=== PATIENT | male | born 1960 | race Caucasian/White ===

== ENCOUNTER 2017-04-20 01:09 | Inpatient (IN) | payer BC ==
[~2017-04-20] VITALS: Ht 177.8 cm; Wt 98.0 kg
[2017-04-20] VITALS (13 sets, daily range): BP systolic 110–173; BP diastolic 70–96; PULSE 77–98; RESP 16–25; TEMP 96.6–98.3; O2SAT 93–99
[~2017-04-20 01:09] MED LIST: OXYC-360 PO
[2017-04-20] MEDS ORDERED: AMLO5TAB2 PO (01:34)
[2017-04-20] MEDS ORDERED: METF500T PO (01:34)
[2017-04-20] MEDS ORDERED: HYDR25TA5 PO (01:34)
[2017-04-20] MEDS ORDERED: ATOR10TA15 PO (01:34)
[2017-04-20] MEDS ORDERED: LISI40TA PO (01:34)
[2017-04-20] MEDS ORDERED: SODIUM CHLORIDE 0.9% FLUSH 10 ML FLUSH IVF PRN (01:45)
[2017-04-20] MEDS ORDERED: ASPIRIN 81 MG CHEW TAB PO ONE (01:45)
[2017-04-20] MEDS ORDERED: NITROGLYCERIN 2% OINT 1 GM PACKET TOP ONE (01:45)
[2017-04-20] MEDS ORDERED: NITROGLYCERIN 0.4 MG SL 25 TABS/BTL SL ONE (01:45)
[2017-04-20 02:09] LABS: AUTOMATED NEUTROPHIL # 13.2 TH/MM3 (1.8-7.7); BASOPHIL # 0.1 TH/MM3 (0-0.2); BASOPHIL % 0.6 % (0.0-2.0); EOSINOPHIL % 0.1 % (0.0-4.0); HEMATOCRIT 46.5 % (39.0-51.0); HEMO FLAGS DIFF FINAL; LYMPH % 8.3 % (9.0-44.0); LYMPHOCYTE # 1.3 TH/MM3 (1.0-4.8); MEAN CELL VOLUME 87.1 FL (80.0-100.0); MEAN CORPUSCULAR HEMOGLOBIN 30.2 PG (27.0-34.0); MEAN CORPUSCULAR HGB CONC 34.7 % (32.0-36.0); MONO % 3.5 % (0.0-8.0); NEUT % 87.5 % (16.0-70.0); PLATELET COUNT 261 TH/MM3 (150-450); RED BLOOD COUNT 5.33 MIL/MM3 (4.50-5.90); RED CELL DISTRIBUTION WIDTH 13.8 % (11.6-17.2); WHITE BLOOD COUNT 15.1 TH/MM3 (4.0-11.0)
--- NOTE | 2017-04-20 02:10 | RADRPT ---
EXAM DATE/TIME: 04/20/2017 01:47 [facility] COMPARISON: No previous studies available for comparison. INDICATIONS : Pt has chest pain with nausea and vomiting. MEDICAL HISTORY : Diabetes mellitus type II. Hypertension Hypercholesterolemia. SURGICAL HISTORY : Umbilical hernia repair. ENCOUNTER: Initial ACUITY: 1 day PAIN SCORE: 7/10 LOCATION: Bilateral chest FINDINGS: The lungs are clear without infiltrate, nodule, or mass. There is no appreciable pleural effusion fo r technique. Heart and mediastinum are unremarkable. CONCLUSION: No acute cardiopulmonary disease. Janet Lagos MD on April 20, 2017 at 2:08 Board Certified Radiologist. This report was verified electronically.
--- NOTE | 2017-04-20 02:13 | PD ---
HPI Chief Complaint: Chest Pain Time Seen by Provider: 01:36 Travel History International Travel<30 days: No Contact w/Intl Traveler<30days: No Traveled to known affect area: No History of Present Illness HPI The patient is a 56 year old male who presents to the [facility] emergency department with a history of abdominal pain in the midepigastric that began at 3PM. He reports that the pain comes and goes. He reports that it feels like "labor pains". Since onset, he has had nausea and vomiting approximately 30 times. He denies any diarrhea. He last moved his bowels today. He has had blood in his stool for 2 weeks ago. He saw his primary care physician regarding this and did have an internal examination of his sigmoid that he reports was unremarkable. He denies having symptoms of acid reflux or heartburn. The patient denies any recent fevers, cough, congestion, neck pain, shortness of breath, urinary symptoms, or neurologic symptoms. PFS Past Medical History Narrative Medical The patient's past medical history is significant for Kidney stones, Hypertension, DM, hyperlipidemia. He reports that he has had a 20 pound weight loss since due to dietary changes. PCP: Dr. Peterson. Cancer: No High Cholesterol: Yes Diabetes: Yes Patient Takes Glucophage: Yes Diminished Hearing: No Hepatitis: No Hiatal Hernia: No Hypertension: Yes Thyroid Disease: No Tetanus Vaccination: < 5 Years Influenza Vaccination: No Past Surgical History Narrative Surgical The patient's past surgical history is significant for umbilical hernia repair, lithotripsy. Abdominal Surgery: Yes (umbilical hernia repair) Genitourinary Surgery: Yes (kidney stone removed) Other Surgery: Yes Social History Alcohol Use: Yes (1/2 bottle of wine last night. ) Tobacco Use: No Substance Use: No Allergies-Medications (Allergen,Severity, Reaction): Coded Allergies: No Known Allergies (Unverified , 04/20/17) Reported Meds & Prescriptions Reported Meds & Active Scripts Active Reported Metformin (Metformin HCl) 500 Mg Tab 500 Mg PO BIDPC With meals Amlodipine (Amlodipine Besylate) 5 Mg Tab 5 Mg PO DAILY Atorvastatin (Atorvastatin Calcium) 10 Mg Tab 10 Mg PO HS Hydrochlorothiazide 25 Mg Tab 25 Mg PO DAILY Lisinopril 40 Mg Tab 40 Mg PO DAILY Review of Systems Except as stated in HPI: all other systems reviewed are Neg General / Constitutional: No: Fever Eyes: No: Visual changes HENT: No: Headaches Cardiovascular: No: Chest Pain or Discomfort Respiratory: No: Shortness of Breath Gastrointestinal: Positive: Nausea, Vomiting, Abdominal Pain, Hematochezia, No : Diarrhea, Hematemesis, Constipation, Changes in Bowel Habits, Indigestion, Loss of Appetite Genitourinary: No: Dysuria Musculoskeletal: No: Pain Skin: No Rash Neurologic: No: Weakness, Focal Abnormalities, Change in Mentation, Slurred Speech, Sensory Disturbance Psychiatric: No: Depression Endocrine: No: Polydipsia Hematologic/Lymphatic: No: Easy Bruising Physical Exam Narrative General: The patient is a well-developed well-nourished male who is uncomfortable appearing on arrival, holding his abdomen. Head and Neck exam: Head is normocephalic atraumatic. Eyes: EOMI, pupils are equal round and reactive to light. Nose: Midline septum with pink mucous membranes Mouth: Dentition unremarkable. Moist mucus membranes. Posterior oropharynx is not erythematous. No tonsillar hypertrophy. Uvula midline. Airway patent. Neck: No palpable lymphadenopathy. No nuchal rigidity. No thyromegaly. Cardiovascular: Regular rate and rhythm without murmurs, gallops, or rubs. Lungs: Clear to auscultation bilaterally. No wheezes, rhonchi, or rales. Abdomen: Soft, with tenderness on palpation in the midepigastric area all the way down to the umbilicus. The patient is distended with decreased bowel sounds. No guarding, rebound, or rigidity. Negative [place] sign. No tenderness on palpation of McBurney's point. Extremities: No clubbing, cyanosis, or edema. 2+ pulses in all 4 extremities. No calf tenderness on palpation. Back: No costovertebral angle tenderness to palpation. Neurologic Exam: Grossly nonfocal. Skin Exam: No rash noted. Intact skin that is warm and dry. Data Data Last Documented VS Vital Signs Date Time Temp Pulse Resp B/P Pulse Ox O2 Delivery O2 Flow Rate FiO2 04/20/17 04:08 83 16 135/77 97 Room Air 04/20/17 01:13 96.6 Orders Electrocardiogram (04/20/17 01:36) B-Type Natriuretic Peptide (04/20/17 01:36) Ckmb (Isoenzyme) Profile (04/20/17 01:36) Complete Blood Count With Diff (04/20/17 01:36) Comprehensive Metabolic Panel (04/20/17 01:36) Magnesium (Mg) (04/20/17 01:36) Prothrombin Time / Inr (Pt) (04/20/17 01:36) Act Partial Throm Time (Ptt) (04/20/17 01:36) Troponin I (04/20/17 01:36) Chest, Single Ap (04/20/17 01:36) Ecg Monitoring (04/20/17 01:36) Bilateral Bp Monitoring (04/20/17 01:36) Iv Access Insert/Monitor (04/20/17 01:36) Oximetry (04/20/17 01:36) Oxygen Administration (04/20/17 01:36) Aspirin Chew (Aspirin Chew) (04/20/17 01:45) Nitroglycerin 2% Oint (Nitroglycerin 2% (04/20/17 01:45) Sodium Chloride 0.9% Flush (Ns Flush) (04/20/17 01:45) Nitroglycerin Sl (Nitrostat Sl) (04/20/17 01:45) Sodium Chlor 0.9% 1000 Ml Inj (Ns 1000 M (04/20/17 02:15) Ondansetron Inj (Zofran Inj) (04/20/17 02:15) Morphine Inj (Morphine Inj) (04/20/17 02:15) Ct Abd/Pel W Iv Contrast(Rout) (04/20/17 02:19) CKMB (04/20/17 01:50) CKMB% (04/20/17 01:50) Iohexol 350 Inj (Omnipaque 350 Inj) (04/20/17 03:50) Admit Order (Ed Use Only) (04/20/17 04:10) Labs Laboratory Tests Test 04/20/17 01:50 White Blood Count 15.1 TH/MM3 Red Blood Count 5.33 MIL/MM3 Hemoglobin 16.1 GM/DL Hematocrit 46.5 % Mean Corpuscular Volume 87.1 FL Mean Corpuscular Hemoglobin 30.2 PG Mean Corpuscular Hemoglobin 34.7 % Concent Red Cell Distribution Width 13.8 % Platelet Count 261 TH/MM3 Mean Platelet Volume 9.6 FL Neutrophils (%) (Auto) 87.5 % Lymphocytes (%) (Auto) 8.3 % Monocytes (%) (Auto) 3.5 % Eosinophils (%) (Auto) 0.1 % Basophils (%) (Auto) 0.6 % Neutrophils # (Auto) 13.2 TH/MM3 Lymphocytes # (Auto) 1.3 TH/MM3 Monocytes # (Auto) 0.5 TH/MM3 Eosinophils # (Auto) 0.0 TH/MM3 Basophils # (Auto) 0.1 TH/MM3 CBC Comment DIFF FINAL Differential Comment Prothrombin Time 10.9 SEC Prothromb Time International 1.0 RATIO Ratio Activated Partial 23.7 SEC Thromboplast Time Sodium Level 139 MEQ/L Potassium Level 3.4 MEQ/L Chloride Level 96 MEQ/L Carbon Dioxide Level 31.5 MEQ/L Anion Gap 12 MEQ/L Blood Urea Nitrogen 21 MG/DL Creatinine 1.29 MG/DL Estimat Glomerular Filtration 58 ML/MIN Rate Random Glucose 209 MG/DL Calcium Level 10.4 MG/DL Magnesium Level 2.0 MG/DL Total Bilirubin 1.4 MG/DL Aspartate Amino Transf 23 U/L (AST/SGOT) Alanine Aminotransferase 30 U/L (ALT/SGPT) Alkaline Phosphatase 64 U/L Total Creatine Kinase 109 U/L Creatine Kinase MB 1.6 NG/ML Troponin I LESS THAN 0.02 NG/ML B-Type Natriuretic Peptide 11 PG/ML Total Protein 8.3 GM/DL Albumin 4.5 GM/DL [facility] Medical Decision Making Medical Screen Exam Complete: Yes Emergency Medical Condition: Yes Medical Record Reviewed: Yes Interpretation(s) Last Impressions Abdomen/Pelvis CT 04/20/17218 Signed Impressions: Service Date/Time: Thursday, April 20, 2017 03:47 - CONCLUSION: 1. Small bowel obstruction. 2. Cholelithiasis. Janet Lagos MD Chest X-Ray 04/20/17 0136 Signed Impressions: Service Date/Time: Thursday, April 20, 2017 01:47 - CONCLUSION: No acute cardiopulmonary disease. Janet Lagos MD Abdomen X-Ray 04/20/17 0000 Signed Impressions: Service Date/Time: Thursday, April 20, 2017 14:14 - CONCLUSION: 1. Nasogastric tube has its tip in good position in the distal stomach or proximal duodenum. 2. Multiple fluid-filled dilated loops of small bowel are difficult to visualize on the plain film and may still be present. No significant air-filled dilatation is noted. Ant Moura MD Differential Diagnosis Bowel obstruction, versus pancreatitis, versus acid reflux, versus peptic ulcer disease, versus viral syndrome Narrative Course During the course of the patients emergency department visit, the patients history, examination, and differential diagnosis were reviewed with the patient. The patient had IV access obtained and blood work sent for analysis. The patient was placed on a youth nutritional monitor with oximetry and blood pressure monitoring. An EKG was done on arrival. The patient's EKG shows a sinus rhythm heart rate of 88, no acute ST segment elevation or depression, T waves inverted in V1, lead 3. A CT scan of the abdomen and pelvis was ordered. The patient was initially provided normal saline 1 L IV fluid bolus, Zofran 4 mg IV for nausea, morphine 4 mg IV for pain. The patients laboratory studies were reviewed and remarkable for white count 15.1, hemoglobin 16.1, platelets 261 with 87.5 neutrophils, lymphocytes 8.3, CMP is remarkable for potassium of 3.4, chloride 96, BUN 21, glucose 209, calcium 10.4, total bilirubin 1.4, CPK 109, troponin I less than 0.02, PT 10.9, PTT 23.7. Radiology studies were reviewed and remarkable for a chest x-ray that showed no acute abnormality. A CT scan of the abdomen and pelvis that shows a small bowel obstruction. Cholelithiasis is also present. The patients results were discussed with the patient, including the plan of care. I explained that further testing and/ or monitoring is indicated based on the patients history, examination, and/ or laboratory findings. Therefore, I recommended admission for additional evaluation. The patient expressed understanding and was agreeable with this plan. The patient was admitted to the hospital in stable condition and [facility] Physician Communication Physician Communication The patient's case was discussed with Dr. Garner who did agree to admit the patient for further evaluation and treatment at this time. Diagnosis Primary Impression: SBO (small bowel obstruction) Admitting Information Admitting Physician Requests: Admit Judi Husain MD Apr 20, 2017 02:13
[2017-04-20] MEDS ORDERED: SODIUM CHLOR 0.9% 1000 ML INJ 1,000 ML IV ONE (02:15)
[2017-04-20] MEDS ORDERED: MORPHINE SULFATE 4 MG/ML INJ IV PUSH ONE (02:15)
[2017-04-20] MEDS ORDERED: ONDANSETRON HCL 4 MG/2 ML VIAL IV ONE (02:15)
[2017-04-20 02:19] LABS: APTT (PATIENT) 23.7 SEC (24.3-30.1); PROTHROMBIN TIME - PATIENT 10.9 SEC (9.8-11.6)
[2017-04-20 03:25] LABS: ALKALINE PHOSPHATASE 64 U/L (45-117); ALT (GPT) 30 U/L (12-78); ANION GAP 12 MEQ/L (5-15); AST (GOT) 23 U/L (15-37); BICARBONATE 31.5 MEQ/L (21.0-32.0); BLOOD UREA NITROGEN 21 MG/DL (7-18); CHLORIDE 96 MEQ/L (98-107); CREATINE KINASE 109 U/L (39-308); GLOMERULAR FILTRATION RATE 58 ML/MIN (>89); SODIUM (NA) 139 MEQ/L (136-145); TOTAL BILIRUBIN ADULT 1.4 MG/DL (0.2-1.0)
[2017-04-20 03:46] LABS: CKMB 1.6 NG/ML (0.5-3.6); POTASSIUM 3.4 MEQ/L (3.5-5.1)
[2017-04-20] MEDS ORDERED: IOHEXOL 350 MG/ML 10 ML VIAL (for RAD DIAG) IV ONE (03:50)
--- NOTE | 2017-04-20 04:07 | RADRPT ---
EXAM DATE/TIME: 04/20/2017 03:47 [facility] COMPARISON: No previous studies available for comparison. INDICATIONS : Abdominal pain with elevated white count. IV CONTRAST: 96 cc Omnipaque 350 (iohexol) IV ORAL CONTRAST: No oral contrast ingested. RADIATION DOSE: 15.71 CTDIvol (mGy) MEDICAL HISTORY : Hypertension. Diabetes mellitus type 2. SURGICAL HISTORY : Umbilical hernia repair. ENCOUNTER: Initial ACUITY: 1 day PAIN SCALE: 6/10 LOCATION: Bilateral abdomen TECHNIQUE: Volumetric scanning of the abdomen and pelvis was performed. Using automated exposure control and adjustment of the mA and/or kV according to patient size, radiation dose was kept as low as reasonably achievable to obtain optimal diagnostic quality images. FINDINGS: CT Abdomen: The liver, spleen, pancreas, adrenals are unremarkable. There is no evidence for any appr eciable pathological adenopathy, free fluid. There is a tiny amount of fluid around the liver and pe rihepatic space with slight fluid in the cul-de-sac. Slight degree of somewhat linear irregular opaci ty is seen in bilateral lung bases mostly consistent with scarring. The gallbladder demonstrates mult iple stones without gallbladder wall thickening, or pericholecystic fluid. There are multiple dilated loops of small bowel with maximum diameter of 2.7 cm organized on the left side with transition to n ormal size loops of terminal ileum. There appears to be possibly thickening of small bowel loops with some fecalization of loops of small bowel in the anterior portion of the abdomen which is the transi tion zone to normal size loops. Tiny subcentimeter cysts in both kidneys. CT pelvis: There is no evidence for mass, abscess formation, or any significant adenopathy within the pelvis. The prostate gland is inhomogeneous and measures 5.0 x 5.8 cm in AP and transverse diameters and nonspecific. CONCLUSION: 1. Small bowel obstruction. 2. Cholelithiasis. Janet Lagos MD on April 20, 2017 at 4:00 Board Certified Radiologist. This report was verified electronically.
[2017-04-20] MEDS: SODIUM CHLOR 0.9% 1000 ML INJ 1,000 ML IV SCH ×4 (04:30→14:50)
[2017-04-20] MEDS ORDERED: DEXTROSE 50% IN WATER 50 ML VIAL(D50) IV PRN (05:00)
[2017-04-20] MEDS ORDERED: ONDANSETRON HCL 4 MG/2 ML VIAL IVP PRN (05:00)
[2017-04-20] MEDS ORDERED: ACETAMINOPHEN 325 MG TAB PO PRN (05:00)
[2017-04-20] MEDS ORDERED: BISACODYL 10 MG SUPP RECTAL PRN (05:00)
[2017-04-20] MEDS ORDERED: MAGNESIUM HYDROXIDE SUSP 30 ML CUP PO PRN (05:00)
[2017-04-20] MEDS ORDERED: GLUCAGON 1 MG/ML VIAL OTHER PRN (05:00)
[2017-04-20] MEDS ORDERED: TEMAZEPAM 15 MG CAP PO PRN (05:00)
[2017-04-20] MEDS ORDERED: PIPERACIL-TAZO 3.375 GM PREMIX 50 ML IV ONE (05:00)
[2017-04-20] MEDS ORDERED: LACTULOSE SYRUP 20 GM/30 ML CUP PO PRN (05:00)
[2017-04-20] MEDS ORDERED: POTASSIUM CHLOR 20 MEQ PREMIX 100 ML IV ONE (05:00)
[2017-04-20] MEDS ORDERED: SENNOSIDES 8.6 MG TAB PO PRN (05:00)
[2017-04-20] MEDS ORDERED: SODIUM CHLORIDE 0.9% FLUSH 10 ML FLUSH IV FLUSH PRN (05:00)
--- NOTE | 2017-04-20 06:13 | HHI.HP ---
HPI Service [facility] Primary Care Physician Anthony Peterson MD Admission Diagnosis Small bowel obstruction Diagnoses: Chief Complaint: abdominal pain Travel History International Travel<30 Days: No Contact w/Intl Traveler <30 Da: No Traveled to Known Affected Are: No History of Present Illness 56 year old male with PMH of Kidney stones, Hypertension, DM, hyperlipidemia who presents to the [facility] emergency department with a history of abdominal pain in the midepigastric that began at 3PM. He reports that the pain comes and goes. He reports that it feels like "labor pains". Since onset, he has had nausea and vomiting approximately 30 times. He denies any diarrhea. He last moved his bowels today. He has had blood in his stool for 2 weeks ago. He saw his primary care physician regarding this and did have an internal examination of his sigmoid that he reports was unremarkable. He denies having symptoms of acid reflux or heartburn. The patient denies any recent fevers, cough, congestion, neck pain, shortness of breath, urinary symptoms, or neurologic symptoms. Review of Systems Except as stated in HPI: all other systems reviewed are Neg Past Family Social History Past Medical History Kidney stones, Hypertension, DM, hyperlipidemia. He reports that he has had a 20 pound weight loss since [place] due to dietary changes. Past Surgical History Umbilical hernia repair, lithotripsy. Reported Medications Reported Meds & Active Scripts Active Reported Metformin (Metformin HCl) 500 Mg Tab 500 Mg PO BIDPC With meals Amlodipine (Amlodipine Besylate) 5 Mg Tab 5 Mg PO DAILY Atorvastatin (Atorvastatin Calcium) 10 Mg Tab 10 Mg PO HS Hydrochlorothiazide 25 Mg Tab 25 Mg PO DAILY Lisinopril 40 Mg Tab 40 Mg PO DAILY Allergies: Coded Allergies: No Known Allergies (Unverified , 04/20/17) Family History Father: emphysema Mother at old age in 90sdecade Social History EtOH use: 1/2 bottle of wine last night. Denies tobacco use or illicit drug use. Physical Exam Vital Signs Vital Signs Date Time Temp Pulse Resp B/P Pulse Ox O2 Delivery O2 Flow Rate FiO2 04/20/17 05:05 98.0 96 18 159/82 97 04/20/17 04:56 97 21 04/20/17 04:08 83 16 135/77 97 Room Air 04/20/17 03:07 16 04/20/17 01:56 98 Room Air 04/20/17 01:56 98 04/20/17 01:55 77 25 112/70 98 Room Air 110/75 04/20/17 01:24 98 Room Air 04/20/17 01:13 96.6 98 16 173/96 99 Room Air Physical Exam GENERAL: This is a very pleasant 56yo male, well-nourished, well-developed patient, in no apparent distress. SKIN: No rashes, ecchymoses or lesions. Cool and dry. HEAD: Atraumatic. Normocephalic. No temporal or scalp tenderness. EYES: Pupils equal round and reactive. Extraocular motions intact. No scleral icterus. No injection or drainage. ENT: Nose without bleeding, purulent drainage or septal hematoma. Throat without erythema, tonsillar hypertrophy or exudate. Uvula midline. Airway patent. NECK: Trachea midline. No JVD or lymphadenopathy. Supple, nontender, no meningeal signs. CARDIOVASCULAR: Regular rate and rhythm without murmurs, gallops, or rubs. RESPIRATORY: Clear to auscultation. Breath sounds equal bilaterally. No wheezes , rales, or rhonchi. GASTROINTESTINAL: Abdomen soft, non-tender, distended. Decreased BS. No hepato- splenomegaly, or palpable masses. No guarding. MUSCULOSKELETAL: Extremities without clubbing, cyanosis, or edema. No joint tenderness, effusion, or edema noted. No calf tenderness. Negative Homans sign bilaterally. NEUROLOGICAL: Awake and alert. Cranial nerves II through XII intact. Motor and sensory grossly within normal limits. Five out of 5 muscle strength in all muscle groups. Normal speech. Laboratory Laboratory Tests Test 04/20/17 01:50 White Blood Count 15.1 Red Blood Count 5.33 Hemoglobin 16.1 Hematocrit 46.5 Mean Corpuscular Volume 87.1 Mean Corpuscular Hemoglobin 30.2 Mean Corpuscular Hemoglobin 34.7 Concent Red Cell Distribution Width 13.8 Platelet Count 261 Mean Platelet Volume 9.6 Neutrophils (%) (Auto) 87.5 Lymphocytes (%) (Auto) 8.3 Monocytes (%) (Auto) 3.5 Eosinophils (%) (Auto) 0.1 Basophils (%) (Auto) 0.6 Neutrophils # (Auto) 13.2 Lymphocytes # (Auto) 1.3 Monocytes # (Auto) 0.5 Eosinophils # (Auto) 0.0 Basophils # (Auto) 0.1 CBC Comment DIFF FINAL Differential Comment Prothrombin Time 10.9 Prothromb Time International 1.0 Ratio Activated Partial 23.7 Thromboplast Time Sodium Level 139 Potassium Level 3.4 Chloride Level 96 Carbon Dioxide Level 31.5 Anion Gap 12 Blood Urea Nitrogen 21 Creatinine 1.29 Estimat Glomerular Filtration 58 Rate Random Glucose 209 Calcium Level 10.4 Magnesium Level 2.0 Total Bilirubin 1.4 Aspartate Amino Transf 23 (AST/SGOT) Alanine Aminotransferase 30 (ALT/SGPT) Alkaline Phosphatase 64 Total Creatine Kinase 109 Creatine Kinase MB 1.6 Troponin I LESS THAN 0.02 B-Type Natriuretic Peptide 11 Total Protein 8.3 Albumin 4.5 Result Diagram: 04/20/1714904/20/17149 Assessment and Plan Assessment and Plan Small bowel obstruction CT scan of the abdomen and pelvis reviewed findings discussed with ED physician : significant for small bowel obstruction. Received IVF, normal saline 1 L IV fluid bolus in the ED. Continue IVF. Monitor VS NPO. NGT placed on suction Consult gen surg Diabetes mellitus type 2: Hold Metformin. Accu checks. ISS. Monitor BS and adjust as need meds HTN: EKG shows a sinus rhythm heart rate of 88, no acute ST segment elevation or depression, T waves inverted in V1, lead 3. A CT scan of the abdomen and pelvis was ordered. Continue Amlodipine 5 Mg PO DAILY. Hydrochlorothiazide 25 Mg PO DAILY, Lisinopril 40 Mg PO DAILY. monitor VS. Hold BP meds if low BP HLD: Continue Atorvastatin 10 Mg PO HS DVT ppx SCD/TEDs Discussed Condition With patient, nurse, ED physician Physician Certification 2 Midnight Certification Type: Admission for Inpatient Services Order for Inpatient Services The services are ordered in accordance with Medicare regulations or non- Medicare payer requirements, as applicable. In the case of services not specified as inpatient-only, they are appropriately provided as inpatient services in accordance with the 2-midnight benchmark. Estimated LOS (days): 3 days is the estimated time the patient will need to remain in the hospital, assuming treatment plan goals are met and no additional complications. Post-Hospital Plan: Home Azra Garner MD Apr 20, 2017 06:13
[2017-04-20] MEDS: INSULIN ASPART SUPPLEMENTAL SCALE SQ SCH ×4 (07:00→20:48)
[2017-04-20 08:22] LABS: LACTIC ACID GHOST NOT REPORTABLE
[2017-04-20] MEDS: amLODIPine BESYLATE 5 MG TAB PO SCH (09:00)
[2017-04-20] MEDS: DOCUSATE SODIUM 50 MG/SENNA 8.6 MG TAB PO SCH ×2 (09:00→20:40)
[2017-04-20] MEDS: HYDROCHLOROTHIAZIDE 25 MG TAB PO SCH (09:00)
[2017-04-20] MEDS: LISINOPRIL 20 MG TAB PO SCH (09:00)
[2017-04-20] MEDS: SODIUM CHLORIDE 0.9% FLUSH 10 ML FLUSH IV FLUSH SCH ×2 (09:00→20:40)
[2017-04-20] MEDS: PIPERACIL-TAZO 4.5 GM PREMIX 100 ML IV SCH ×3 (11:51→22:52)
[2017-04-20] MEDS ORDERED: PHENOL 1.4% SOLN 180 ML BTL OROPHARYNG PRN (14:00)
--- NOTE | 2017-04-20 15:09 | RADRPT ---
EXAM DATE/TIME: 04/20/2017 14:14 [facility] COMPARISON: CT ABDOMEN & PELVIS W CONTRAST, April 20, 2017, 3:47. INDICATIONS : Evaluate Small bowel obstruction. MEDICAL HISTORY : Hypertension. SURGICAL HISTORY : Umbilical hernia repair. ENCOUNTER: Subsequent ACUITY: 1 day PAIN SCORE: 0/10 LOCATION: Abdomen. FINDINGS: A nasogastric tube has its tip in good position likely within the distal stomach or proximal duodenum . Several loops of small bowel are identified but demonstrate no significant air-filled dilatation. The previously noted fluid-filled dilated loops of small bowel would be difficult to identify on a p campos film and may still be present. No free intraperitoneal air is noted. Mild degenerative changes and scoliosis of the thoracolumbar spine are noted. No abnormal calcifications are noted. CONCLUSION: 1. Nasogastric tube has its tip in good position in the distal stomach or proximal duodenum. 2. Multiple fluid-filled dilated loops of small bowel are difficult to visualize on the plain film an d may still be present. No significant air-filled dilatation is noted. Ant Moura MD on April 20, 2017 at 15:02 Board Certified Radiologist. This report was verified electronically.
--- NOTE | 2017-04-20 15:34 | PD.CONS ---
cc: Mich Manuel MD [facility] Service CONSULTATION NOTE FOR SURGICAL ATTENDING, DR. MICH MANUEL General Surgery Consult Requested By Dr. Garner Reason for Consult SBO Primary Care Physician Anthony Peterson MD History of Present Illness This is a 56 year old male with a past medical history of kidney stones, hypertension and diabetes. He developed epigastric abdominal pain about 3PM yesterday after eating barbecue chicken. He denies any sick contacts. Other family members ate the same food and did not develop similar symptoms. He had a normal bowel movement just prior to onset of abdominal pain. He reports nausea and vomiting; denies diarrhea. The patient came to the ED to be evaluated and a CT abdomen/pelvis was obtained which showed a small bowel obstruction. An NGT was placed to LIWS. A General Surgery consultation has been requested for evaluation of small bowel obstruction. Review of Systems Constitutional: DENIES: Fatigue, Fever Endocrine: DENIES: Polydipsia, Polyuria, Polyphagia Eyes: DENIES: Diplopia Ears, nose, mouth, throat: DENIES: Tinnitus Respiratory: DENIES: Cough, Snoring Cardiovascular: DENIES: Chest pain, Palpitations Gastrointestinal: COMPLAINS OF: Abdominal pain, Nausea, Vomiting, DENIES: Diarrhea Genitourinary: DENIES: Urinary incontinence, Urgency Musculoskeletal: DENIES: Joint pain Integumentary: DENIES: Abnormal pigmentation Hematologic/lymphatic: DENIES: Bruising Immunologic/allergic: DENIES: Eczema Neurologic: DENIES: Abnormal gait, Headache Psychiatric: DENIES: Confusion, Mood changes, Depression Past Family Social History Past Medical History Kidney stones Hypertension Diabetes Past Surgical History Umbilical hernia repair lithotripsy Reported Medications See chart but of note he does not take any blood thinning medications Allergies: Coded Allergies: No Known Allergies (Unverified , 04/20/17) Active Ordered Medications Current Medications Medications (Trade) Dose Ordered Sig/Amado Route Start Time Stop Time Status Last Admin Sodium Chloride 2 ml 2 ml UNSCH PRN IVF 04/20/17 01:45 Sodium Chloride 1,000 ml @ 100 mls/hr Q10H IV 04/20/17 04:30 04/20/17 04:30 (NS 1000 ml Inj) 1,000 ml @ 100 mls/hr Q10H IV 04/20/17 04:53 (NS Flush) 2 ml UNSCH PRN IV FLUSH 04/20/17 05:00 (NS Flush) 2 ml BID IV FLUSH 04/20/17 09:00 (Tylenol) 650 mg Q4H PRN PO 04/20/17 05:00 (Zofran Inj) 4 mg Q6H PRN IVP 04/20/17 05:00 (Restoril) 15 mg HS PRN PO 04/20/17 05:00 (Martine-Colace) 1 tab BID PO 04/20/17 09:00 (Milk Of Magnesia Liq) 30 ml Q12H PRN PO 04/20/17 05:00 (Senokot) 17.2 mg Q12H PRN PO 04/20/17 05:00 (Dulcolax Supp) 10 mg DAILY PRN RECTAL 04/20/17 05:00 Lactulose 30 ml 30 ml DAILY PRN PO 04/20/17 05:00 (Zosyn 4.5 Gm Premix) 100 ml @ 200 mls/hr Q6H IV 04/20/17 12:00 04/20/17 11:51 (Norvasc) 5 mg DAILY PO 04/20/17 09:00 (Lipitor) 10 mg HS PO 04/20/17 21:00 (Hydrodiuril) 25 mg DAILY PO 04/20/17 09:00 (Prinivil) 40 mg DAILY PO 04/20/17 09:00 (D50w (Vial) Inj) 50 ml UNSCH PRN IV 04/20/17 05:00 (Glucagon Inj) 1 mg UNSCH PRN OTHER 04/20/17 05:00 (Chloraseptic [place]) 2 spray Q2H PRN OROPHARYNG 04/20/17 14:00 Family History Noncontributory Social History Denies tobacco use Denies EtOH use Denies illicit drug use Physical Exam Vital Signs Vital Signs Date Time Temp Pulse Resp B/P Pulse Ox O2 Delivery O2 Flow Rate FiO2 04/20/17 11:30 98.3 81 18 157/80 96 04/20/17 09:10 87 04/20/17 09:04 21 04/20/17 07:48 96.8 87 18 139/74 93 04/20/17 05:05 98.0 96 18 159/82 97 04/20/17 04:56 97 21 04/20/17 04:08 83 16 135/77 97 Room Air 04/20/17 03:07 16 04/20/17 01:56 98 Room Air 04/20/17 01:56 98 04/20/17 01:55 77 25 112/70 98 Room Air 110/75 04/20/17 01:24 98 Room Air 04/20/17 01:13 96.6 98 16 173/96 99 Room Air Physical Exam GENERAL: 56 year old male resting in bed with nasogastric tube in place. SKIN: Warm and dry. HEAD: Atraumatic. Normocephalic. EYES: Pupils equal and round. No scleral icterus. No injection or drainage. ENT: No nasal bleeding or discharge. Mucous membranes pink and moist. NECK: Trachea midline. CARDIOVASCULAR: Regular rate and rhythm. RESPIRATORY: No accessory muscle use. Clear to auscultation. Breath sounds equal bilaterally. GASTROINTESTINAL: Abdomen soft, non-tender, mildly distended. MUSCULOSKELETAL: Extremities without clubbing, cyanosis, or edema. No obvious deformities. NEUROLOGICAL: Awake and alert. No obvious cranial nerve deficits. Motor grossly within normal limits. Five out of 5 muscle strength in the arms and legs. Normal speech. PSYCHIATRIC: Appropriate mood and affect; insight and judgment normal. Laboratory Laboratory Tests Test 04/20/17 04/20/17 04/20/17 01:50 06:14 10:25 White Blood Count 15.1 Red Blood Count 5.33 Hemoglobin 16.1 Hematocrit 46.5 Mean Corpuscular Volume 87.1 Mean Corpuscular Hemoglobin 30.2 Mean Corpuscular Hemoglobin 34.7 Concent Red Cell Distribution Width 13.8 Platelet Count 261 Mean Platelet Volume 9.6 Neutrophils (%) (Auto) 87.5 Lymphocytes (%) (Auto) 8.3 Monocytes (%) (Auto) 3.5 Eosinophils (%) (Auto) 0.1 Basophils (%) (Auto) 0.6 Neutrophils # (Auto) 13.2 Lymphocytes # (Auto) 1.3 Monocytes # (Auto) 0.5 Eosinophils # (Auto) 0.0 Basophils # (Auto) 0.1 CBC Comment DIFF FINAL Differential Comment Prothrombin Time 10.9 Prothromb Time International 1.0 Ratio Activated Partial 23.7 Thromboplast Time Sodium Level 139 Potassium Level 3.4 Chloride Level 96 Carbon Dioxide Level 31.5 Anion Gap 12 Blood Urea Nitrogen 21 Creatinine 1.29 Estimat Glomerular Filtration 58 Rate Random Glucose 209 Calcium Level 10.4 Magnesium Level 2.0 Total Bilirubin 1.4 Aspartate Amino Transf 23 (AST/SGOT) Alanine Aminotransferase 30 (ALT/SGPT) Alkaline Phosphatase 64 Total Creatine Kinase 109 Creatine Kinase MB 1.6 Troponin I LESS THAN 0.02 LESS THAN 0.02 LESS THAN 0.02 B-Type Natriuretic Peptide 11 Total Protein 8.3 Albumin 4.5 Lactic Acid Level 2.8 1.8 Lipase 81 Date/Time Procedure Status Source Growth 04/20/17 10:25 Aerobic Blood Culture Received Blood Peripheral Pending 04/20/17 10:25 Anaerobic Blood Culture Received Blood Peripheral Pending Result Diagram: 04/20/17 0150 04/20/17 0150 Imaging Last Impressions Abdomen/Pelvis CT 04/20/179 Signed Impressions: Service Date/Time: Thursday, April 20, 2017 03:47 - CONCLUSION: 1. Small bowel obstruction. 2. Cholelithiasis. Janet Lagos MD Chest X-Ray 04/20/17 0136 Signed Impressions: Service Date/Time: Thursday, April 20, 2017 01:47 - CONCLUSION: No acute cardiopulmonary disease. Janet Lagos MD Abdomen X-Ray 04/20/17 0000 Signed Impressions: Service Date/Time: Thursday, April 20, 2017 14:14 - CONCLUSION: 1. Nasogastric tube has its tip in good position in the distal stomach or proximal duodenum. 2. Multiple fluid-filled dilated loops of small bowel are difficult to visualize on the plain film and may still be present. No significant air-filled dilatation is noted. Ant Moura MD Assessment and Plan Problem List: (1) Gallstones (2) Abdominal pain (3) Abnormal CT scan, gastrointestinal tract (4) Elevated WBC count (5) Vomiting (6) DM (diabetes mellitus) (7) HTN (hypertension) (8) History of kidney stones (9) SBO (small bowel obstruction) Assessment and Plan 56 year old male with abdominal pain with radiography results indicating small bowel obstriction -NGT to LIWS -Obtain KUB this afternoon -May require SBFT tomorrow -NPO; okay for ice chips -Okay to ambulate hallways off LIWS for small periods of time -Increase mobility out of bed -Chloraseptic spray PRN -Discussed plan with patient family at bedside -Thank you for this consult; we will continue to follow -Plan discussed with Dr. Mnauel Discussed Condition With Dr. Manuel Mr. Mcmahon + family Attending Statement NOTE FOR SURGICAL ATTENDING, DR. MICH MANUEL \\ Patient seen and examined Since being admitted he feels a lot better with the NG tube in KUB not very impressive for small bowel obstruction Patient states he passed a little flatus earlier today I suspect he he was recovering from bilateral gastroenteritis continue NG tube reevaluate in the morning Consider small bowel follow-through I agree with above assessment and plan. The exam, history, and the medical decision-making described in the above note were completed with the assistance of the mid-level provider. I reviewed and agree with the findings presented. I attest that I had a [id number] encounter with the patient on the same day, and personally performed and documented my assessment and findings in the medical record. The following services were provided during this hospital visit: Chart data review, vital sign assessments/reviewing monitor data Review of consultations notes if present. Medication orders/review and/or management Ordering and/or reviewing lab tests Ordering and/or interpreting/reviewing x-rays and/or diagnostic studies Care of the patient and discussion of the patient with the care team Documentation time To help prompt me to consider important information that might be impacting today's encounter and assessment, information from prior notes written by myself or my colleagues may have been "brought forward/copy and pasted" into today's note. Problem Qualifiers (1) Abdominal pain: Qualified Code: R10.84 - Generalized abdominal pain (2) Elevated WBC count: Qualified Code: D72.825 - Bandemia (3) Vomiting: Qualified Code: G43.A0 - Non-intractable cyclical vomiting with nausea (4) HTN (hypertension): Qualified Code: I10 - Essential hypertension Iman Cardoso Apr 20, 2017 15:34 Mich Manuel MD Apr 20, 2017 19:33
--- NOTE | 2017-04-20 18:17 | EKG ---
Date Performed: 04/20/2017 Time Performed: 01:27:15 PTAGE: 56 years EKG: Sinus rhythm Since previous tracing, no significant change noted NORMAL ECG PREVIOUS TRACING : 01/31/2011 14.10.06 DOCTOR: Jonathan Husain Interpretating Date/Time 04/20/2017 18:15:50
[2017-04-20] MEDS ORDERED: ATORVASTATIN 10 MG TAB PO SCH (21:00)
[2017-04-21] VITALS (7 sets, daily range): BP systolic 159–171; BP diastolic 92–99; PULSE 71–81; RESP 17–19; TEMP 96.6–98.7; O2SAT 92–96
[2017-04-21] MEDS: PIPERACIL-TAZO 4.5 GM PREMIX 100 ML IV SCH ×2 (05:06→12:00)
[2017-04-21] MEDS: INSULIN ASPART SUPPLEMENTAL SCALE SQ SCH ×3 (06:19→16:00)
[2017-04-21 06:26] LABS: AUTOMATED NEUTROPHIL # 6.5 TH/MM3 (1.8-7.7); BASOPHIL % 0.5 % (0.0-2.0); EOSINOPHIL # 0.2 TH/MM3 (0-0.4); HEMATOCRIT 42.1 % (39.0-51.0); HEMO FLAGS DIFF FINAL; LYMPH % 23.5 % (9.0-44.0); LYMPHOCYTE # 2.3 TH/MM3 (1.0-4.8); MEAN CELL VOLUME 88.8 FL (80.0-100.0); MEAN CORPUSCULAR HEMOGLOBIN 30.3 PG (27.0-34.0); MEAN CORPUSCULAR HGB CONC 34.2 % (32.0-36.0); MONO % 8.6 % (0.0-8.0); NEUT % 65.4 % (16.0-70.0); PLATELET COUNT 213 TH/MM3 (150-450); RED BLOOD COUNT 4.74 MIL/MM3 (4.50-5.90); RED CELL DISTRIBUTION WIDTH 13.6 % (11.6-17.2)
[2017-04-21 07:12] LABS: ALKALINE PHOSPHATASE 55 U/L (45-117); ALT (GPT) 21 U/L (12-78); ANION GAP 7 MEQ/L (5-15); AST (GOT) 11 U/L (15-37); BICARBONATE 31.8 MEQ/L (21.0-32.0); BLOOD UREA NITROGEN 11 MG/DL (7-18); CHLORIDE 104 MEQ/L (98-107); GLOMERULAR FILTRATION RATE 85 ML/MIN (>89); SODIUM (NA) 143 MEQ/L (136-145); TOTAL BILIRUBIN ADULT 1.2 MG/DL (0.2-1.0)
[2017-04-21 07:17] LABS: POTASSIUM 2.8 MEQ/L (3.5-5.1)
--- NOTE | 2017-04-21 08:14 | HHI.PR ---
Subjective Subjective Notes DAILY PROGRESS NOTE FOR SURGICAL ATTENDING, DR. MICH MANUEL pt had bowel movement Objective Vitals/I&O Vital Signs Date Time Temp Pulse Resp B/P Pulse Ox O2 Delivery O2 Flow Rate FiO2 04/21/17 04:35 96.6 76 17 171/93 92 04/20/17 20:33 21 04/20/17 04:08 Room Air Labs Laboratory Tests Test 04/20/17 04/21/17 10:25 04:44 Lactic Acid Level 1.8 Troponin I LESS THAN 0.02 Lipase 81 White Blood Count 10.0 Red Blood Count 4.74 Hemoglobin 14.4 Hematocrit 42.1 Mean Corpuscular Volume 88.8 Mean Corpuscular Hemoglobin 30.3 Mean Corpuscular Hemoglobin 34.2 Concent Red Cell Distribution Width 13.6 Platelet Count 213 Mean Platelet Volume 9.7 Neutrophils (%) (Auto) 65.4 Lymphocytes (%) (Auto) 23.5 Monocytes (%) (Auto) 8.6 Eosinophils (%) (Auto) 2.0 Basophils (%) (Auto) 0.5 Neutrophils # (Auto) 6.5 Lymphocytes # (Auto) 2.3 Monocytes # (Auto) 0.9 Eosinophils # (Auto) 0.2 Basophils # (Auto) 0.0 CBC Comment DIFF FINAL Differential Comment Sodium Level 143 Potassium Level 2.8 Chloride Level 104 Carbon Dioxide Level 31.8 Anion Gap 7 Blood Urea Nitrogen 11 Creatinine 0.92 Estimat Glomerular Filtration 85 Rate Random Glucose 124 Calcium Level 8.5 Total Bilirubin 1.2 Aspartate Amino Transf 11 (AST/SGOT) Alanine Aminotransferase 21 (ALT/SGPT) Alkaline Phosphatase 55 Total Protein 6.5 Albumin 3.4 Date/Time Procedure Status Source Growth 04/20/17 10:25 Aerobic Blood Culture Received Blood Peripheral Pending 04/20/17 10:25 Anaerobic Blood Culture Received Blood Peripheral Pending Radiology Last Impressions Abdomen/Pelvis CT 04/20/17 0219 Signed Impressions: Service Date/Time: Thursday, April 20, 2017 03:47 - CONCLUSION: 1. Small bowel obstruction. 2. Cholelithiasis. Janet Lagos MD Chest X-Ray 04/20/17 0136 Signed Impressions: Service Date/Time: Thursday, April 20, 2017 01:47 - CONCLUSION: No acute cardiopulmonary disease. Janet Lagos MD Abdomen X-Ray 04/20/17 0000 Signed Impressions: Service Date/Time: Thursday, April 20, 2017 14:14 - CONCLUSION: 1. Nasogastric tube has its tip in good position in the distal stomach or proximal duodenum. 2. Multiple fluid-filled dilated loops of small bowel are difficult to visualize on the plain film and may still be present. No significant air-filled dilatation is noted. Ant Moura MD Cardiovascular: Regular Lungs: Clear Abdomen: Non-distended, Non-tender A/P Problem List: (1) Low serum potassium (2) Gallstones (3) Abdominal pain (4) Abnormal CT scan, gastrointestinal tract (5) Elevated WBC count (6) Vomiting (7) DM (diabetes mellitus) (8) HTN (hypertension) (9) History of kidney stones (10) SBO (small bowel obstruction) Assessment and Plan 56-year-old gentleman with a probable ileus appears to be resolving. This morning he does have hypokalemia which will be treated he had a bowel movement yesterday will pull his NG tube advance activities and diet as tolerated If he ivett diet he maybe able to go home later today Attending Statement NOTE FOR SURGICAL ATTENDING, DR. MICH MANUEL . I attest that I had a [id number] encounter with the patient on the same day, and personally performed and documented my assessment and findings in the medical record. The following services were provided during this hospital visit: Chart data review, vital sign assessments/reviewing monitor data Review of consultations notes if present. Medication orders/review and/or management Ordering and/or reviewing lab tests Ordering and/or interpreting/reviewing x-rays and/or diagnostic studies Care of the patient and discussion of the patient with the care team Documentation time To help prompt me to consider important information that might be impacting today's encounter and assessment, information from prior notes written by myself or my colleagues may have been "brought forward/copy and pasted" into today's note. Problem Qualifiers (1) Abdominal pain: Qualified Code: R10.84 - Generalized abdominal pain (2) Elevated WBC count: Qualified Code: D72.825 - Bandemia (3) Vomiting: Qualified Code: G43.A0 - Non-intractable cyclical vomiting with nausea (4) HTN (hypertension): Qualified Code: I10 - Essential hypertension Mich Manuel MD Apr 21, 2017 08:14
[2017-04-21] MEDS: amLODIPine BESYLATE 5 MG TAB PO SCH (08:20)
[2017-04-21] MEDS: HYDROCHLOROTHIAZIDE 25 MG TAB PO SCH (08:20)
[2017-04-21] MEDS: DOCUSATE SODIUM 50 MG/SENNA 8.6 MG TAB PO SCH (08:20)
[2017-04-21] MEDS: LISINOPRIL 20 MG TAB PO SCH (08:20)
[2017-04-21] MEDS: SODIUM CHLORIDE 0.9% FLUSH 10 ML FLUSH IV FLUSH SCH (09:00)
[2017-04-21] MEDS ORDERED: POTASSIUM PHOSPHATE INJ 30 MMOL in SODIUM CHLOR 0.9% 250 ML INJ 250 ML IV ONE (09:00)
[2017-04-21] MEDS: POTASSIUM CHLOR 20 MEQ PREMIX 100 ML IV SCH ×2 (10:00→10:25)
--- NOTE | 2017-04-21 10:56 | HHI.PR ---
Subjective Remarks Tolerating clear liquid diet. NG tube is now out. Flatulence and bowel movements are present. Objective Vital Signs Date Time Temp Pulse Resp B/P Pulse Ox O2 Delivery O2 Flow Rate FiO2 04/21/17 08:00 97.8 75 19 159/99 95 04/21/17 07:30 75 04/21/17 04:35 96.6 76 17 171/93 92 04/21/17 00:30 97.4 81 17 169/97 92 04/20/17 21:00 82 04/20/17 20:33 95 21 04/20/17 20:15 98.2 80 18 173/89 94 04/20/17 16:00 98.1 81 18 158/89 93 04/20/17 11:30 98.3 81 18 157/80 96 I/O 04/20/17 04/20/17 04/20/17 04/21/17 04/21/17 04/21/17 07:00 15:00 23:00 07:00 15:00 23:00 Intake Total 832 ml 0 ml 0 ml Output Total 400 ml 375 ml 600 ml Balance 432 ml -375 ml -600 ml Intake Oral 0 ml 0 ml 0 ml IV Total 832 ml Gastric Drainage Total 400 ml 375 ml 600 ml # Voids 1 2 1 3 # Bowel Movements 0 0 0 1 Result Diagram: 04/21/17 0444 04/21/17 0444 Objective Remarks GENERAL: NAD, A&Ox3 HEAD: Normocephalic. NECK: Supple, trachea midline. No lymphadenopathy. EYES: No scleral icterus. No injection or drainage. CARDIOVASCULAR: Regular rate and rhythm without murmurs, gallops, or rubs. RESPIRATORY: Breath sounds equal bilaterally. No accessory muscle use. GASTROINTESTINAL: Abdomen soft, non-tender, nondistended. MUSCULOSKELETAL: No cyanosis, or edema. SKIN: Warm and dry. NEURO: No focal neurological deficitis. A/P Problem List: (1) HTN (hypertension) ICD Code: I10 (2) DM (diabetes mellitus) ICD Code: E11.9 (3) SBO (small bowel obstruction) ICD Code: K56.69 Assessment and Plan Assessment and plan 56-year-old male admitted with small bowel obstruction. Small bowel obstruction Improving. NGT removed. Patient tolerating clears. Patient reports flatulence and 2 bowel movements thus far. Some blood was present in the second bowel movement (likely related to this obstruction) Upgrade to a full liquid diet and continue to monitor for tolerance IV fluids continued Diabetes mellitus type 2 Insulin sliding scale follow blood sugars Hypokalemia Replace and monitor Hypertension Continue amlodipine, hydrochlorothiazide, lisinopril Hyperlipidemia Continue atorvastatin DVT prophylaxis SCDs Problem Qualifiers (1) HTN (hypertension): Qualified Code: I10 - Essential hypertension Roosevelt Wellington MD Apr 21, 2017 10:56 am
--- NOTE | 2017-04-21 17:33 | HHI.DS ---
Discharge Summary Admission Date Apr 20, 2017 at 04:12 Discharge Date: Apr 21, 2017 Admitting Diagnosis Small bowel obstruction (1) HTN (hypertension) ICD Code: I10 Diagnosis: Secondary (2) DM (diabetes mellitus) ICD Code: E11.9 Diagnosis: Secondary (3) SBO (small bowel obstruction) ICD Code: K56.69 Diagnosis: Principal Procedures NG Tube Brief History - From Admission 56 year old male with PMH of Kidney stones, Hypertension, DM, hyperlipidemia who presents to the [facility] emergency department with a history of abdominal pain in the midepigastric that began at 3PM. He reports that the pain comes and goes. He reports that it feels like "labor pains". Since onset, he has had nausea and vomiting approximately 30 times. He denies any diarrhea. He last moved his bowels today. He has had blood in his stool for 2 weeks ago. He saw his primary care physician regarding this and did have an internal examination of his sigmoid that he reports was unremarkable. He denies having symptoms of acid reflux or heartburn. The patient denies any recent fevers, cough, congestion, neck pain, shortness of breath, urinary symptoms, or neurologic symptoms. CBC/BMP: 04/21/17 0444 04/21/17 1408 Significant Findings Laboratory Tests Test 04/20/17 04/20/17 04/20/17 04/21/17 01:50 06:14 10:25 04:44 White Blood Count 15.1 TH/MM3 (4.0-11.0) Neutrophils (%) (Auto) 87.5 % (16.0-70.0) Lymphocytes (%) (Auto) 8.3 % (9.0-44.0) Neutrophils # (Auto) 13.2 TH/MM3 (1.8-7.7) Activated Partial 23.7 SEC Thromboplast Time (24.3-30.1) Potassium Level 3.4 MEQ/L 2.8 MEQ/L (3.5-5.1) (3.5-5.1) Chloride Level 96 MEQ/L (98-107) Blood Urea Nitrogen 21 MG/DL (7-18) Estimat Glomerular Filtration 58 ML/MIN (>89) 85 ML/MIN (>89) Rate Random Glucose 209 MG/DL 124 MG/DL (74-106) (74-106) Calcium Level 10.4 MG/DL (8.5-10.1) Total Bilirubin 1.4 MG/DL 1.2 MG/DL (0.2-1.0) (0.2-1.0) Troponin I LESS THAN 0.02 LESS THAN 0.02 LESS THAN 0.02 NG/ML NG/ML NG/ML (0.02-0.05) (0.02-0.05) (0.02-0.05) Total Protein 8.3 GM/DL (6.4-8.2) Lactic Acid Level 2.8 mmol/L (0.4-2.0) Monocytes (%) (Auto) 8.6 % (0.0-8.0) Aspartate Amino Transf 11 U/L (15-37) (AST/SGOT) Test 04/21/17 14:08 Potassium Level 3.1 MEQ/L (3.5-5.1) Hospital Course Mr. Mcmahon is a 56 year old male. he was admitted with a SBO. He denies any prior abdominal surgeries, trauma or radiation. No prior history of SBO. NG tube was placed to suction at admit. He benefited from this trough time. Clears were started last night and through today his diet was advanced. He experienced no pain or recurrence of distention. Flatulence and Bowel movements are present now. SBO has resolved. He has been cleared for discharge by surgery. He is medically clear for discharge to home. He is tolerating a regular diet now and is safe for resumption of his prior diet with prior medications. Discharge home today. Pt Condition on Discharge: Fair Discharge Disposition: Discharge Home Discharge Time: <= 30 minutes Discharge Instructions DIET: Follow Instructions for: As Tolerated, No Restrictions Activities you can perform: Regular-No Restrictions Follow up Referrals: PCP Follow-up - 2 Weeks Surgical - 1 Week with Mich Manuel MD Continued Medications: Amlodipine (Amlodipine) 5 Mg Tab 5 MG PO DAILY Blood Pressure Management #30 Ref 0 TAB Atorvastatin (Atorvastatin) 10 Mg Tab 10 MG PO HS Cholesterol Management #30 Ref 0 TAB Hydrochlorothiazide (Hydrochlorothiazide) 25 Mg Tab 25 MG PO DAILY #30 Ref 0 TAB Lisinopril (Lisinopril) 40 Mg Tab 40 MG PO DAILY Blood Pressure Management #30 Ref 0 TAB Metformin (Metformin) 500 Mg Tab 500 MG PO BIDPC With meals Blood Sugar Management #60 Ref 0 TAB Roosevelt Wellington MD Apr 21, 2017 17:33
[2017-04-21] MEDS ORDERED: POTASSIUM CHLORIDE 10 MEQ CONTROLLED RELEASE TAB PO ONE (18:00)
== END 2017-04-21 20:41 | disposition home or self-care (01) | DRG 390 ==
LOC: NEPE 01:09 → NEDA 04:12 → N06B 05:03
PROVIDERS: ADMIT Hospitalist; ATTEND Hospitalist
DX: K56.60 Unspecified intestinal obstruction (principal); I10 Essential (primary) hypertension; E11.9 Type 2 diabetes mellitus without complications; Z79.84 Long term (current) use of oral hypoglycemic drugs; E78.5 Hyperlipidemia, unspecified; E87.6 Hypokalemia; K80.20 Calculus of gallbladder without cholecystitis without obstruction; Z87.442 Personal history of urinary calculi
CPT/HCPCS: 71010; 74020; 74177; 80053; 82550; 82552; 82948; 83605; 83690; 83735; 83880; 84132; 84484; 85025; 85610; 85730; 87040; 93005; 96361; 96374; 96375; J2270; J2405; J2543; J3480; J7030; J7050; Q9967

== ENCOUNTER 2017-09-02 02:37 | Inpatient (IN) | payer BC ==
[~2017-09-02] VITALS: Ht 172.7 cm; Wt 96.0 kg
[~2017-09-02 02:37] MED LIST changes: +AMLO5TAB2 PO; +ATOR10TA15 PO; +HYDR25TA5 PO; +LISI40TA PO; +METF500T PO; -OXYC-360 PO
[2017-09-02] MEDS ORDERED: IOHEXOL 350 MG/ML 10 ML VIAL (for RAD DIAG) IVCONTRAST ONE (02:38)
[2017-09-02 02:40] VITALS: BP 126/76; PULSE 74; RESP 18; TEMP 98.1; O2SAT 95
[2017-09-02] MEDS ORDERED: SODIUM CHLOR 0.9% 1000 ML INJ 1,000 ML IV ONE (03:15)
[2017-09-02] MEDS ORDERED: ONDANSETRON HCL 4 MG/2 ML VIAL IV ONE (03:15)
--- NOTE | 2017-09-02 03:25 | PD ---
HPI Chief Complaint: Abdominal Pain Time Seen by Provider: 02:55 Travel History International Travel<30 days: No Contact w/Intl Traveler<30days: No Traveled to known affect area: No History of Present Illness HPI The patient is a 57 year old male who presents to the [facility] emergency department with a history of nausea and abdominal pressure that began around 2 PM yesterday. He then developed abdominal cramps at 4PM yesterday. The pain is present in the midepigastric area. He developed nausea and vomiting at 1 AM. He has vomited approximately 10x since then. He reports that his symptoms are similar to having a bowel obstruction in April. His Last BM was yesterday AM. It was a small hard bowel movement. On review of systems otherwise, the patient denies having any known fevers, cough, congestion, neck pain, chest pain , shortness of breath, diarrhea, urinary symptoms, or neurologic symptoms. PFSH Past Medical History Narrative Medical The patient's past medical history is significant for having history of partial small bowel obstruction, history of diabetes mellitus that reportedly resolved with a 20 pound weight loss, history of kidney stones, hypertension, hyperlipidemia. Autoimmune Disease: No Cancer: No Cardiovascular Problems: Yes High Cholesterol: Yes Diabetes: Yes ("DIET CONTROLLED") Patient Takes Glucophage: No Diminished Hearing: No Endocrine: No Genitourinary: No Hepatitis: No Hiatal Hernia: No Hypertension: Yes Immune Disorder: No Musculoskeletal: No Neurologic: No Psychiatric: No Reproductive: No Respiratory: No Immunizations Current: Yes Thyroid Disease: No Tetanus Vaccination: Unknown Influenza Vaccination: No Past Surgical History Narrative Surgical The patient's past surgical history is significant for an umbilical hernia repair, lithotripsy. Abdominal Surgery: Yes (umbilical hernia repair) Genitourinary Surgery: Yes (kidney stone removed) Other Surgery: Yes ("LEFT BICEP REPAIR") Social History Alcohol Use: Yes Tobacco Use: No Substance Use: No Allergies-Medications (Allergen,Severity, Reaction): Coded Allergies: No Known Allergies (Unverified , 09/02/17) Reported Meds & Prescriptions Reported Meds & Active Scripts Active Reported Amlodipine (Amlodipine Besylate) 5 Mg Tab 10 Mg PO DAILY Atorvastatin (Atorvastatin Calcium) 10 Mg Tab 10 Mg PO HS Hydrochlorothiazide 25 Mg Tab 25 Mg PO DAILY Lisinopril 40 Mg Tab 40 Mg PO DAILY Review of Systems Except as stated in HPI: all other systems reviewed are Neg General / Constitutional: No: Fever Eyes: No: Visual changes HENT: No: Headaches Cardiovascular: No: Chest Pain or Discomfort Respiratory: No: Shortness of Breath Gastrointestinal: Positive: Nausea, Vomiting, Abdominal Pain, Constipation, Changes in Bowel Habits, No: Diarrhea, Hematemesis, Hematochezia, Indigestion, Loss of Appetite Genitourinary: No: Dysuria Musculoskeletal: No: Pain Skin: No Rash Neurologic: No: Weakness Psychiatric: No: Depression Endocrine: No: Polydipsia Hematologic/Lymphatic: No: Easy Bruising Physical Exam Narrative General: The patient is a well-developed well-nourished male in no acute distress. Head and Neck exam: Head is normocephalic atraumatic. Eyes: EOMI, pupils are equal round and reactive to light. Nose: Midline septum with pink mucous membranes Mouth: Dentition unremarkable. Moist mucus membranes. Posterior oropharynx is not erythematous. No tonsillar hypertrophy. Uvula midline. Airway patent. Neck: No palpable lymphadenopathy. No nuchal rigidity. No thyromegaly. Cardiovascular: Regular rate and rhythm without murmurs, gallops, or rubs. Lungs: Clear to auscultation bilaterally. No wheezes, rhonchi, or rales. Abdomen: Soft, tenderness on palpation overlying the midepigastric area and periumbilical area, with decreased bowel sounds are audible, no other tenderness on palpation over McBurney's point. No guarding, rebound, or rigidity. Negative Buffalo sign. Extremities: No clubbing, cyanosis, or edema. 2+ pulses in all 4 extremities. No calf tenderness on palpation. Back: No costovertebral angle tenderness to palpation. Neurologic Exam: Grossly nonfocal. Skin Exam: No rash noted. Intact skin that is warm and dry. Data Data Last Documented VS Vital Signs Date Time Temp Pulse Resp B/P (MAP) Pulse Ox O2 Delivery O2 Flow Rate FiO2 09/02/17 02:40 98.1 74 18 126/76 (93) 95 Orders Orders Electrocardiogram (09/02/17 03:13) Complete Blood Count With Diff (09/02/17 03:13) Comprehensive Metabolic Panel (09/02/17 03:13) Creatine Kinase (Cpk) (09/02/17 03:13) Ckmb (Isoenzyme) Profile (09/02/17 03:13) Troponin I (09/02/17 03:13) Prothrombin Time / Inr (Pt) (09/02/17 03:13) Act Partial Throm Time (Ptt) (09/02/17 03:13) C-Reactive Protein (Crp) (09/02/17 03:13) Lipase (09/02/17 03:13) Magnesium (Mg) (09/02/17 03:13) Chest, Single Ap (09/02/17 03:13) Iv Access Insert/Monitor (09/02/17 03:13) Ecg Monitoring (09/02/17 03:13) Oximetry (09/02/17 03:13) Lactic Acid Sepsis Protocol (09/02/17 03:13) Sodium Chlor 0.9% 1000 Ml Inj (Ns 1000 M (09/02/17 03:15) Ondansetron Inj (Zofran Inj) (09/02/17 03:15) Ct Abd/Pel W Iv Contrast(Rout) (09/02/17 03:35) Ketorolac Inj (Toradol Inj) (09/02/17 03:45) Potassium Chlor 20 Meq Premix (Kcl 20 Me (09/02/17 04:45) Iohexol 350 Inj (Omnipaque 350 Inj) (09/02/17 02:38) Hemoglobin (Hgb) A1c (09/02/17 05:20) Admit Order (Ed Use Only) (09/02/17 05:20) Labs Laboratory Tests Test 09/02/17 03:15 09/02/17 03:20 White Blood Count 12.4 TH/MM3 Red Blood Count 5.14 MIL/MM3 Hemoglobin 16.0 GM/DL Hematocrit 44.7 % Mean Corpuscular Volume 87.0 FL Mean Corpuscular Hemoglobin 31.1 PG Mean Corpuscular Hemoglobin Concent 35.8 % Red Cell Distribution Width 12.9 % Platelet Count 259 TH/MM3 Mean Platelet Volume 9.5 FL Neutrophils (%) (Auto) 77.1 % Lymphocytes (%) (Auto) 15.6 % Monocytes (%) (Auto) 5.7 % Eosinophils (%) (Auto) 1.1 % Basophils (%) (Auto) 0.5 % Neutrophils # (Auto) 9.5 TH/MM3 Lymphocytes # (Auto) 1.9 TH/MM3 Monocytes # (Auto) 0.7 TH/MM3 Eosinophils # (Auto) 0.1 TH/MM3 Basophils # (Auto) 0.1 TH/MM3 CBC Comment AUTO DIFF Differential Comment AUTO DIFF CONFIRMED Platelet Estimate NORMAL Platelet Morphology Comment NORMAL Red Cell Morphology Comment NORMAL Prothrombin Time 10.7 SEC Prothromb Time International Ratio 1.0 RATIO Activated Partial Thromboplast Time 20.2 SEC Blood Urea Nitrogen 15 MG/DL Creatinine 1.14 MG/DL Random Glucose 280 MG/DL Total Protein 7.4 GM/DL Albumin 4.0 GM/DL Calcium Level 9.4 MG/DL Magnesium Level 1.8 MG/DL Alkaline Phosphatase 72 U/L Aspartate Amino Transf (AST/SGOT) 22 U/L Alanine Aminotransferase (ALT/SGPT) 36 U/L Total Bilirubin 1.5 MG/DL Sodium Level 135 MEQ/L Potassium Level 3.1 MEQ/L Chloride Level 97 MEQ/L Carbon Dioxide Level 29.9 MEQ/L Anion Gap 8 MEQ/L Estimat Glomerular Filtration Rate 66 ML/MIN Total Creatine Kinase 80 U/L Troponin I LESS THAN 0.02 NG/ML C-Reactive Protein 0.68 MG/DL Lipase 85 U/L Lactic Acid Level 1.6 mmol/L [facility] Medical Decision Making Medical Screen Exam Complete: Yes Emergency Medical Condition: Yes Medical Record Reviewed: Yes Interpretation(s) Last Impressions Abdomen/Pelvis CT 09/02/17 0335 Signed Impressions: Service Date/Time: Saturday, September 02, 2017 04:51 - CONCLUSION: 1. Partial small bowel obstruction likely related to adhesions. 2. Cholelithiasis without gallbladder wall thickening or inflammatory changes. 3. Minimal ascites adjacent to the liver. 4. Stable subcentimeter hepatic low densities. Ori Townsend MD Chest X-Ray 09/02/17 0313 Signed Impressions: Service Date/Time: Saturday, September 02, 2017 03:22 - CONCLUSION: No acute disease. Ori Townsend MD Differential Diagnosis Partial small bowel obstruction, versus pancreatitis, versus biliary colic, versus acute cholecystitis Narrative Course During the course of the patients emergency department visit, the patients history, examination, and differential diagnosis were reviewed with the patient. The patient was placed on a quality assurance monitor final with oximetry and frequent blood pressure monitoring. The patient had IV access obtained and blood work sent for analysis. The patient had an ECG done on arrival. The patient's ECG reveals a sinus rhythm heart rate of 65, no acute ST segment changes, T waves are inverted in lead 3, V1. The patient was initially provided normal saline 1 L IV fluid bolus, Toradol 15 mg IV, Zofran 4 mg IV. The patients laboratory studies were reviewed and remarkable for a white count of 12.4, hemoglobin 16, platelets 259 with 77.1 neutrophils. CMP is remarkable for sodium of 135, potassium 3.1 which was supplemented IV with 20 mEq of potassium chloride over 2 hours, chloride 97, GFR 66, glucose 280. A hemoglobin A1c was ordered. Total bilirubin 1.5, CPK 80, troponin I less than 0.02, C-reactive protein 0.68, lipase 85. PT 10.7, PTT 20.2. Radiology studies were reviewed and remarkable for a chest x-ray shows no acute cardiopulmonary disease or free air. CT scan of the abdomen and pelvis shows a partial small bowel obstruction likely related to adhesions, cholelithiasis without gallbladder wall thickening or inflammatory changes. Minimal ascites adjacent to the liver. Stable subcentimeter hepatic low-densities. Physician Communication Physician Communication The patient's case was discussed with Dr. Dawkins who did agree to admit the patient for further evaluation and treatment at this time. Diagnosis Primary Impression: SBO (small bowel obstruction) Admitting Information Admitting Physician Requests: Judi Stokes MD Sep 02, 2017 03:25
[2017-09-02 03:34] LABS: AUTOMATED NEUTROPHIL # 9.5 TH/MM3 (1.8-7.7); BASOPHIL # 0.1 TH/MM3 (0-0.2); BASOPHIL % 0.5 % (0.0-2.0); EOSINOPHIL # 0.1 TH/MM3 (0-0.4); EOSINOPHIL % 1.1 % (0.0-4.0); HEMATOCRIT 44.7 % (39.0-51.0); LYMPH % 15.6 % (9.0-44.0); LYMPHOCYTE # 1.9 TH/MM3 (1.0-4.8); MEAN CORPUSCULAR HEMOGLOBIN 31.1 PG (27.0-34.0); MEAN CORPUSCULAR HGB CONC 35.8 % (32.0-36.0); MONO % 5.7 % (0.0-8.0); NEUT % 77.1 % (16.0-70.0); PLATELET COUNT 259 TH/MM3 (150-450); RED BLOOD COUNT 5.14 MIL/MM3 (4.50-5.90); RED CELL DISTRIBUTION WIDTH 12.9 % (11.6-17.2); WHITE BLOOD COUNT 12.4 TH/MM3 (4.0-11.0)
[2017-09-02] MEDS ORDERED: KETOROLAC TROMETHAMINE 30 MG/ML (IVP) VIAL IV PUSH ONE (03:45)
[2017-09-02 03:51] LABS: APTT (PATIENT) 20.2 SEC (24.3-30.1); PROTHROMBIN TIME - PATIENT 10.7 SEC (9.8-11.6)
[2017-09-02 03:54] LABS: HEMO FLAGS AUTO DIFF
[2017-09-02 04:18] LABS: PLATELET ESTIMATE SMEAR NORMAL (NORMAL); PLATELET MORPHOLOGY NORMAL (NORMAL); SCAN/DIFF AUTO DIFF CONFIRMED
--- NOTE | 2017-09-02 04:25 | RADRPT ---
EXAM DATE/TIME: 09/02/2017 03:22 [facility] COMPARISON: No previous studies available for comparison. INDICATIONS : Chest pain. MEDICAL HISTORY : Hypertension. Diabetes mellitus type 2. SURGICAL HISTORY : Umbilical hernia repair ENCOUNTER: Initial ACUITY: 1 day PAIN SCORE: 8/10 LOCATION: Bilateral chest FINDINGS: A single view of the chest demonstrates the lungs to be symmetrically aerated without evidence of mas s, infiltrate or effusion. The cardiomediastinal contours are unremarkable. Osseous structures are intact. CONCLUSION: No acute disease. Ori Townsend MD on September 02, 2017 at 4:23 Board Certified Radiologist. This report was verified electronically.
[2017-09-02 04:27] LABS: ALKALINE PHOSPHATASE 72 U/L (45-117); ALT (GPT) 36 U/L (12-78); ANION GAP 8 MEQ/L (5-15); AST (GOT) 22 U/L (15-37); BICARBONATE 29.9 MEQ/L (21.0-32.0); BLOOD UREA NITROGEN 15 MG/DL (7-18); CHLORIDE 97 MEQ/L (98-107); CREATINE KINASE 80 U/L (39-308); GLOMERULAR FILTRATION RATE 66 ML/MIN (>89); MAGNESIUM 1.8 MG/DL (1.5-2.5); POTASSIUM 3.1 MEQ/L (3.5-5.1); SODIUM (NA) 135 MEQ/L (136-145); TOTAL BILIRUBIN ADULT 1.5 MG/DL (0.2-1.0)
[2017-09-02] MEDS ORDERED: POTASSIUM CHLOR 20 MEQ PREMIX 100 ML IV ONE (04:45)
--- NOTE | 2017-09-02 05:09 | RADRPT ---
EXAM DATE/TIME: 09/02/2017 04:51 [facility] COMPARISON: CT ABDOMEN & PELVIS W CONTRAST, April 20, 2017, 3:47. INDICATIONS : Abdomen pain with vomiting. IV CONTRAST: 95 cc Omnipaque 350 (iohexol) IV ORAL CONTRAST: No oral contrast ingested. RADIATION DOSE: 14.52 CTDIvol (mGy) MEDICAL HISTORY : Hypertension. Diabetes mellitus type 2. Renal calculi. SURGICAL HISTORY : Umbilical hernia repair. Lithotripsy ENCOUNTER: Initial ACUITY: 1 day PAIN SCALE: 6/10 LOCATION: Bilateral abdomen TECHNIQUE: Volumetric scanning of the abdomen and pelvis was performed. Using automated exposure control and ad justment of the mA and/or kV according to patient size, radiation dose was kept as low as reasonably achievable to obtain optimal diagnostic quality images. DICOM format image data is available electro nically for review and comparison. FINDINGS: LOWER LUNGS: The visualized lower lungs are clear. LIVER: Homogeneous density without lesion. There is no dilation of the biliary tree. Multiple gallstones. M inimal ascites. Stable hepatic subcentimeter low densities. SPLEEN: Normal size without lesion. PANCREAS: Within normal limits. KIDNEYS: Normal in size and shape. There is no mass, stone or hydronephrosis. ADRENAL GLANDS: Within normal limits. VASCULAR: There is no aortic aneurysm. BOWEL/MESENTERY: There are some mildly dilated small bowel loops in the left midabdomen with some slight inflammatory changes. This is in the region of some focal adhesions. Scattered diverticulosis.. There is no free intraperitoneal air or fluid. ABDOMINAL WALL: Within normal limits. RETROPERITONEUM: There is no lymphadenopathy. BLADDER: No wall thickening or mass. REPRODUCTIVE: Prostate gland enlarged. INGUINAL: There is no lymphadenopathy or hernia. MUSCULOSKELETAL: Within normal limits for patient age. CONCLUSION: 1. Partial small bowel obstruction likely related to adhesions. 2. Cholelithiasis without gallbladder wall thickening or inflammatory changes. 3. Minimal ascites adjacent to the liver. 4. Stable subcentimeter hepatic low densities. Ori Townsend MD on September 02, 2017 at 5:03 Board Certified Radiologist. This report was verified electronically.
[2017-09-02] MEDS ORDERED: SODIUM CHLORIDE 0.9% FLUSH 10 ML FLUSH IV FLUSH PRN (06:15)
[2017-09-02] MEDS ORDERED: KETOROLAC TROMETHAMINE 30 MG/ML (IVP) VIAL IV PUSH PRN (06:15)
[2017-09-02] MEDS ORDERED: ONDANSETRON HCL 4 MG/2 ML VIAL IVP PRN (06:15)
[2017-09-02] MEDS ORDERED: NALOXONE HCL 0.4 MG/ML AMP IV PUSH PRN (06:15)
[2017-09-02 06:39] VITALS: BP 133/65; PULSE 71; RESP 18; O2SAT 96
[2017-09-02 07:25] VITALS: BP 124/83; PULSE 63; RESP 18; TEMP 97.1; O2SAT 97
[2017-09-02] MEDS: SODIUM CHLOR 0.9% 1000 ML INJ 1,000 ML IV SCH (08:53)
[2017-09-02] MEDS: SODIUM CHLORIDE 0.9% FLUSH 10 ML FLUSH IV FLUSH SCH ×2 (08:53→21:06)
--- NOTE | 2017-09-02 09:36 | HHI.HP ---
[facility] Anthony Peterson MD Admission Diagnosis Partial small bowel obstruction Diagnoses: Chief Complaint: Abdominal pain, vomiting Travel History International Travel<30 Days: No Contact w/Intl Traveler <30 Da: No Traveled to Known Affected Are: No History of Present Illness 57-year-old male with complaints of partial small bowel obstruction in April 2017, history of diabetes mellitus that reportedly resolved with a 20 pound weight loss, history of kidney stones, hypertension, hyperlipidemia, who came to the emergency room for further evaluation of abdominal pain and vomiting. The patient says he was drinking water last night after he had a large meal in the afternoon anf lunch and then around 4:00 in the morning she started vomiting all the food, no blood in it. Says first he felt abdominal discomfort mainly in epigastric area he thought this could undergo only however got progressively worse associated intractable nausea and vomiting. The pain does not radiate. Doesn't know what makes it better was aggravated by eating food and drinking water. Says he has a history of small bowel obstruction with the same presentation in April 2017. He has associated mild abdominal pain mainly epigastric. He also has associated nausea. Did not have a bowel movement today however last bowel movement was yesterday in the morning and was very small. Did not pass gas. Otherwise no fever or chills. No urinary complaints. No chest pain, shortness of breath, palpitations. Says he has seen Dr. Manuel in the past last admission was small bowel obstruction, Dr. Manuel recommended a surgery however the patient refused at that time. Patient says still feel's nauseated but no more vomiting. Review of Systems ROS Limitations: Clinical Condition Except as stated in HPI: all other systems reviewed are Neg Past Family Social History Past Medical History Partial small bowel obstruction, history of diabetes mellitus that reportedly resolved with a 20 pound weight loss, history of kidney stones, hypertension, hyperlipidemia. Past Surgical History Umbilical hernia repair, lithotripsy. Reported Medications Reported Meds & Active Scripts Active Reported Amlodipine (Amlodipine Besylate) 5 Mg Tab 10 Mg PO DAILY Atorvastatin (Atorvastatin Calcium) 10 Mg Tab 10 Mg PO HS Hydrochlorothiazide 25 Mg Tab 25 Mg PO DAILY Lisinopril 40 Mg Tab 40 Mg PO DAILY Allergies: Coded Allergies: No Known Allergies (Unverified , 09/02/17) Family History Father had diabetes at the age of 93 . Mother healthy Social History Occasional alcohol use. Denies tobacco use or illicit drug use. Physical Exam Vital Signs Vital Signs Date Time Temp Pulse Resp B/P (MAP) Pulse Ox O2 Delivery O2 Flow Rate FiO2 09/02/17 07:25 97.1 63 18 124/83 (97) 97 09/02/17 06:39 71 18 133/65 (87) 96 Room Air 09/02/17 02:40 98.1 74 18 126/76 (93) 95 Physical Exam GENERAL: This is a 57-year-old male, well-nourished, well-developed patient, in no apparent distress. SKIN: No rashes, ecchymoses or lesions. Cool and dry. HEAD: Atraumatic. Normocephalic. No temporal or scalp tenderness. EYES: Pupils equal round and reactive. Extraocular motions intact. No scleral icterus. No injection or drainage. ENT: Nose without bleeding, purulent drainage or septal hematoma. Throat without erythema, tonsillar hypertrophy or exudate. Uvula midline. Airway patent. NECK: Trachea midline. No JVD or lymphadenopathy. Supple, nontender, no meningeal signs. CARDIOVASCULAR: Regular rate and rhythm without murmurs, gallops, or rubs. RESPIRATORY: Clear to auscultation. Breath sounds equal bilaterally. No wheezes , rales, or rhonchi. GASTROINTESTINAL: Abdomen soft, mild tenderness epigastric area, widely distended. No guarding. MUSCULOSKELETAL: Extremities without clubbing, cyanosis, or edema. No joint tenderness, effusion, or edema noted. No calf tenderness. Negative Homans sign bilaterally. NEUROLOGICAL: Awake and alert. Cranial nerves II through XII intact. Motor and sensory grossly within normal limits. Five out of 5 muscle strength in all muscle groups. Normal speech. Laboratory Laboratory Tests Test 09/02/17 03:15 09/02/17 03:20 White Blood Count 12.4 Red Blood Count 5.14 Hemoglobin 16.0 Hematocrit 44.7 Mean Corpuscular Volume 87.0 Mean Corpuscular Hemoglobin 31.1 Mean Corpuscular Hemoglobin Concent 35.8 Red Cell Distribution Width 12.9 Platelet Count 259 Mean Platelet Volume 9.5 Neutrophils (%) (Auto) 77.1 Lymphocytes (%) (Auto) 15.6 Monocytes (%) (Auto) 5.7 Eosinophils (%) (Auto) 1.1 Basophils (%) (Auto) 0.5 Neutrophils # (Auto) 9.5 Lymphocytes # (Auto) 1.9 Monocytes # (Auto) 0.7 Eosinophils # (Auto) 0.1 Basophils # (Auto) 0.1 CBC Comment AUTO DIFF Differential Comment AUTO DIFF CONFIRMED Platelet Estimate NORMAL Platelet Morphology Comment NORMAL Red Cell Morphology Comment NORMAL Prothrombin Time 10.7 Prothromb Time International Ratio 1.0 Activated Partial Thromboplast Time 20.2 Blood Urea Nitrogen 15 Creatinine 1.14 Random Glucose 280 Total Protein 7.4 Albumin 4.0 Calcium Level 9.4 Magnesium Level 1.8 Alkaline Phosphatase 72 Aspartate Amino Transf (AST/SGOT) 22 Alanine Aminotransferase (ALT/SGPT) 36 Total Bilirubin 1.5 Sodium Level 135 Potassium Level 3.1 Chloride Level 97 Carbon Dioxide Level 29.9 Anion Gap 8 Estimat Glomerular Filtration Rate 66 Total Creatine Kinase 80 Troponin I LESS THAN 0.02 C-Reactive Protein 0.68 Lipase 85 Lactic Acid Level 1.6 Result Diagram: 09/02/1731409/02/17314 Imaging Last Impressions Abdomen/Pelvis CT 09/02/17334 Signed Impressions: Service Date/Time: Saturday, September 02, 2017 04:51 - CONCLUSION: 1. Partial small bowel obstruction likely related to adhesions. 2. Cholelithiasis without gallbladder wall thickening or inflammatory changes. 3. Minimal ascites adjacent to the liver. 4. Stable subcentimeter hepatic low densities. Ori Townsend MD Chest X-Ray 09/02/17312 Signed Impressions: Service Date/Time: Saturday, September 02, 2017 03:22 - CONCLUSION: No acute disease. Ori Townsend MD Caprini VTE Risk Assessment Caprini VTE Risk Assessment: Mod/High Risk (score >= 2) Caprini Risk Assessment Model Point Value = 1 Point Value = 2 Point Value = 3 Point Value = 5 Age 41-60 Minor surgery BMI > 25 kg/m2 Swollen legs Varicose veins or History of unexplained or recurrent spontaneous Oral contraceptives or hormone replacement Sepsis (< 1 month) Serious lung disease, including pneumonia (< 1 month) Abnormal pulmonary function Acute myocardial infarction Congestive heart failure (< 1 month) History of inflammatory bowel disease Medical patient at bed rest Age 61-74 Arthroscopic surgery Major open surgery (> 45 min) Laparoscopic surgery (> 45 min) Malignancy Confined to bed (> 72 hours) Immobilizing plaster cast Central venous access Age >= 75 History of VTE Family history of VTE Factor V Leiden Prothrombin [id number] Lupus anticoagulant Anticardiolipin antibodies Elevated serum homocysteine Heparin-induced thrombocytopenia Other congenital or acquired thrombophilia Stroke (< 1 month) Elective arthroplasty Hip, pelvis, or leg fracture Acute spinal cord injury (< 1 month) Prophylaxis Regimen Total Risk Factor Score Risk Level Prophylaxis Regimen 0-1 Low Early ambulation 2 Moderate Order ONE of the following: *Sequential Compression Device (SCD) *Heparin 5000 units SQ BID 3-4 Higher Order ONE of the following medications: *Heparin 5000 units SQ TID *Enoxaparin/Lovenox 40 mg SQ daily (WT < 150 kg, CrCl > 30 mL/min) *Enoxaparin/Lovenox 30 mg SQ daily (WT < 150 kg, CrCl > 10-29 mL/min) *Enoxaparin/Lovenox 30 mg SQ BID (WT < 150 kg, CrCl > 30 mL/min) AND/OR *Sequential Compression Device (SCD) 5 or more Highest Order ONE of the following medications: *Heparin 5000 units SQ TID (Preferred with Epidurals) *Enoxaparin/Lovenox 40 mg SQ daily (WT < 150 kg, CrCl > 30 mL/min) *Enoxaparin/Lovenox 30 mg SQ daily (WT < 150 kg, CrCl > 10-29 mL/min) *Enoxaparin/Lovenox 30 mg SQ BID (WT < 150 kg, CrCl > 30 mL/min) AND *Sequential Compression Device (SCD) Assessment and Plan Assessment and Plan Small bowel obstruction likely due to additions CT scan of the abdomen and pelvis reviewed findings discussed with the patient patient has partial small bowel obstruction likely related to adhesions. Cholelithiasis without wall thickening or inflammatory changes. Minimal ascites adjacent to the liver. Stable subcentimeter hepatic low-densities. Keep nothing by mouth We'll place NG tube to low intermittent suction if needed Consult general surgery for further evaluation A medications per pain scale IV fluids Hypertension continue lisinopril, hydrochlorothiazide, amlodipine. Monitor vital signs Hyperlipidemia continue atorvastatin DVT prophylaxis SCD/teds Discussed with the patient, nurse Physician Certification 2 Midnight Certification Type: Admission for Inpatient Services Order for Inpatient Services The services are ordered in accordance with Medicare regulations or non- Medicare payer requirements, as applicable. In the case of services not specified as inpatient-only, they are appropriately provided as inpatient services in accordance with the 2-midnight benchmark. Estimated LOS (days): 3 days is the estimated time the patient will need to remain in the hospital, assuming treatment plan goals are met and no additional complications. Post-Hospital Plan: Home Azra Garner MD Sep 02, 2017 09:36
[2017-09-02 10:30] LABS: HEMOGLOBIN A1a 1.6 %; HEMOGLOBIN A1b 2.4 %; HEMOGLOBIN Ao 78.6 %; HEMOGLOBIN LA1C 3.3 %
[2017-09-02 12:00] VITALS: BP 126/73; PULSE 62; RESP 18; TEMP 97.4; O2SAT 96
--- NOTE | 2017-09-02 13:02 | MB ---
cc: BAYRON PIÑA MD DATE OF CONSULTATION 09/02/2017 REASON FOR CONSULTATION Small bowel obstruction. HISTORY OF PRESENT ILLNESS This is a 57-year-old male who developed epigastric crampy intermittent abdominal pain yesterday. He had nausea and an overnight last night developed multiple episodes of vomiting. He had a similar problem in April and this felt exactly the same. At that time, he had a partial bowel obstruction managed conservatively which improved. He states that actually about a year ago was his first episode, but this was milder. His only abdominal surgery is an open umbilical hernia repair with mesh. He was evaluated in the emergency department and noted to have mild leukocytosis. A CT scan of the abdomen and pelvis showed partial small-bowel obstruction likely related to adhesions as well as cholelithiasis. PAST MEDICAL HISTORY 1. Hypertension 2. Hyperlipidemia 3. Nephrolithiasis 4. Diabetes mellitus PAST SURGICAL HISTORY 1. Umbilical hernia repair with mesh 2. Lithotripsy 3. Biceps repair ALLERGIES No known allergies. MEDICATIONS 1. Amlodipine 2. Atorvastatin 3. HCTZ 4. Lisinopril SOCIAL HISTORY Occasional alcohol. No tobacco or drug use. FAMILY HISTORY Noncontributory REVIEW OF SYSTEMS Negative except as mentioned in the HPI. PHYSICAL EXAMINATION GENERAL: A pleasant well-developed, well-nourished 57-year-old male. VITAL SIGNS: Temperature 97.1, heart rate 63, respirations 18, blood pressure 124/83. HEAD: Normocephalic, atraumatic. EYES: Pupils equal, round and react to light bilaterally. RESPIRATORY: Nonlabored breathing. No respiratory distress. CARDIOVASCULAR: Warm and well-perfused. ABDOMEN: Moderate distension. Tympany in the upper abdomen, but he has diastasis recti. Well-healed periumbilical incision. Moderate epigastric tenderness to palpation. No rebound or guarding. EXTREMITIES: No cyanosis or edema. SKIN: Warm dry and nonjaundiced. ASSESSMENT/PLAN This is a 57-year-old male who does appear to have a small bowel obstruction. He has had this resolve conservatively in the past. I am going to go ahead and order a small bowel follow-through to further evaluate and also see if this will resolve. I discussed that it is possible that he will need to surgery, but that generally we can give this at least a few days and will also resolve with nonoperative management. He understands. MD ALE Solis/DJL /12:29 PM /12:47 PM
[2017-09-02] MEDS ORDERED: DIATRIZOATE MEGLUM/DIATRIZOATE SOD 120 ML BTL (for RAD DIAG) PO ONE (14:59)
--- NOTE | 2017-09-02 16:01 | RADRPT ---
EXAM DATE/TIME: 09/02/2017 13:54 [facility] COMPARISON: No previous studies available for comparison. INDICATIONS : Vomiting. Evaluate for small bowel obstruction. IMAGE COUNT: 7 CONTRAST: Gastrovahe IMAGING TIME(S): 15 min, 30 min, 45 min MEDICAL HISTORY : Hypertension. Diabetes mellitus type 2. Renal calculi. SURGICAL HISTORY : Umbilical hernia repair. Lithotripsy ENCOUNTER: Subsequent ACUITY: 2 days PAIN SCORE: 0/10 LOCATION: Abdomen. FINDINGS: Oral contrast passes through to the colon by 45 minutes. The mucosal pattern of the jejunum and ileu m is normal. Small bowel loops measure up to 5 cm in dimension (jejunum). The terminal ileum is nor mal in appearance. CONCLUSION: There are some dilated loops of jejunum, but there is rapid passage of contrast to the colon. Mychal Magdaleno MD on September 02, 2017 at 15:58 Board Certified Radiologist. This report was verified electronically.
[2017-09-02 16:05] VITALS: BP 140/78; PULSE 63; RESP 16; TEMP 98.2; O2SAT 97
[2017-09-02] MEDS ORDERED: DEXTROSE 50% IN WATER 50 ML VIAL(D50) IV PUSH PRN (16:30)
[2017-09-02] MEDS ORDERED: GLUCAGON 1 MG/ML VIAL OTHER PRN (16:30)
[2017-09-02] MEDS: LISINOPRIL 20 MG TAB PO SCH (17:54)
[2017-09-02] MEDS: INSULIN ASPART SUPPLEMENTAL SCALE SQ SCH ×2 (17:54→21:06)
[2017-09-02 19:20] VITALS: BP 145/82; PULSE 70; RESP 16; TEMP 97.5; O2SAT 96
[2017-09-02] MEDS ORDERED: ATORVASTATIN 10 MG TAB PO SCH (21:00)
--- NOTE | 2017-09-02 21:17 | EKG ---
Date Performed: 09/02/2017 Time Performed: 03:39:17 PTAGE: 57 years EKG: Sinus rhythm NORMAL ECG PREVIOUS TRACING : 04/20/2017 01.27 Compared to prior tracing no significant change DOCTOR: Tanya Norton Interpretating Date/Time 09/02/2017 21:16:44
[2017-09-03 00:26] VITALS: BP 117/72; PULSE 68; RESP 16; TEMP 97; O2SAT 97
[2017-09-03] MEDS: SODIUM CHLOR 0.9% 1000 ML INJ 1,000 ML IV SCH (02:02)
[2017-09-03 04:16] VITALS: BP 117/72; PULSE 67; RESP 16; TEMP 96.5; O2SAT 96
[2017-09-03 07:51] VITALS: BP 121/78; PULSE 59; RESP 18; TEMP 97.7; O2SAT 97
[2017-09-03] MEDS: INSULIN ASPART SUPPLEMENTAL SCALE SQ SCH (08:00)
[2017-09-03] MEDS: LISINOPRIL 20 MG TAB PO SCH (08:40)
[2017-09-03] MEDS: SODIUM CHLORIDE 0.9% FLUSH 10 ML FLUSH IV FLUSH SCH (08:44)
[2017-09-03] MEDS ORDERED: HYDROCHLOROTHIAZIDE 25 MG TAB PO SCH (09:00)
--- NOTE | 2017-09-03 09:52 | HHI.PR ---
Subjective Subjective Notes SBFT showed rapid contrast into colon. He has had multiple bowel movts and tolerating liquids. Objective Vitals/I&O Vital Signs Date Time Temp Pulse Resp B/P (MAP) Pulse Ox O2 Delivery O2 Flow Rate FiO2 09/03/17 07:51 97.7 59 18 121/78 (92) 97 09/02/17 19:12 Room Air Labs Laboratory Tests Test 09/03/17 08:20 Narrative Exam NAD Abd: soft, mild distention A/P Assessment and Plan 57 yo M with resolved partial small bowel obstruction. Clear for dc home from my standpoint. We discussed in detail that he may want to avoid large amt of rough or raw food such as nuts. He will see me in office as needed. Man Rosenberg MD Sep 03, 2017 09:52
[2017-09-03 09:58] LABS: AUTOMATED NEUTROPHIL # 4.8 TH/MM3 (1.8-7.7); BASOPHIL # 0.1 TH/MM3 (0-0.2); BASOPHIL % 0.9 % (0.0-2.0); EOSINOPHIL # 0.2 TH/MM3 (0-0.4); EOSINOPHIL % 2.3 % (0.0-4.0); HEMATOCRIT 42.7 % (39.0-51.0); HEMO FLAGS DIFF FINAL; LYMPH % 27.9 % (9.0-44.0); LYMPHOCYTE # 2.2 TH/MM3 (1.0-4.8); MEAN CELL VOLUME 89.2 FL (80.0-100.0); MEAN CORPUSCULAR HEMOGLOBIN 31.3 PG (27.0-34.0); MEAN CORPUSCULAR HGB CONC 35.1 % (32.0-36.0); NEUT % 60.9 % (16.0-70.0); PLATELET COUNT 232 TH/MM3 (150-450); RED BLOOD COUNT 4.79 MIL/MM3 (4.50-5.90); RED CELL DISTRIBUTION WIDTH 13.2 % (11.6-17.2)
--- NOTE | 2017-09-03 10:06 | HHI.PR ---
Subjective Remarks Eating well, no n/v/c. Had multiple BM. no abd pain at this time. No chest pain or sob. Seen by surgeon cleared for DC. Objective Vitals Vital Signs Date Time Temp Pulse Resp B/P (MAP) Pulse Ox O2 Delivery O2 Flow Rate FiO2 09/03/17 07:51 97.7 59 18 121/78 (92) 97 09/03/17 04:16 96.5 67 16 117/72 (87) 96 09/03/17 00:26 97.0 68 16 117/72 (87) 97 09/02/17 19:20 97.5 70 16 145/82 (103) 96 09/02/17 19:12 Room Air 09/02/17 16:05 98.2 63 16 140/78 (98) 97 09/02/17 12:00 97.4 62 18 126/73 (90) 96 I/O 09/02/17 09/02/17 09/02/17 09/03/17 09/03/17 09/03/17 07:00 15:00 23:00 07:00 15:00 23:00 Intake Total 1000 ml 480 ml 120 ml Balance 1000 ml 480 ml 120 ml Intake Oral 480 ml 120 ml IV Total 1000 ml # Voids 4 2 2 # Bowel Movements 1 0 0 Result Diagram: 09/02/1731409/02/17314 Imaging Last Impressions Abdomen/Pelvis CT 09/02/17334 Signed Impressions: Service Date/Time: Saturday, September 02, 2017 04:51 - CONCLUSION: 1. Partial small bowel obstruction likely related to adhesions. 2. Cholelithiasis without gallbladder wall thickening or inflammatory changes. 3. Minimal ascites adjacent to the liver. 4. Stable subcentimeter hepatic low densities. Ori Townsend MD Chest X-Ray 09/02/173 Signed Impressions: Service Date/Time: Saturday, September 02, 2017 03:22 - CONCLUSION: No acute disease. Ori Townsend MD Small Bowel X-Ray 09/02/17 0000 Signed Impressions: Service Date/Time: Saturday, September 02, 2017 13:54 - CONCLUSION: There are some dilated loops of jejunum, but there is rapid passage of contrast to the colon. Mychal Magdaleno MD Objective Remarks GENERAL: This is a 57-year-old male, well-nourished, well-developed patient, in no apparent distress. CARDIOVASCULAR: Regular rate and rhythm without murmurs, gallops, or rubs. RESPIRATORY: Clear to auscultation. Breath sounds equal bilaterally. No wheezes , rales, or rhonchi. GASTROINTESTINAL: Abdomen soft, mild tenderness epigastric area, widely distended. No guarding. MUSCULOSKELETAL: Extremities without clubbing, cyanosis, or edema. No joint tenderness, effusion, or edema noted. No calf tenderness. Negative Homans sign bilaterally. A/P Assessment and Plan Small bowel obstruction likely due to adhesions CT scan of the abdomen and pelvis reviewed findings discussed with the patient patient has partial small bowel obstruction likely related to adhesions. Cholelithiasis without wall thickening or inflammatory changes. Minimal ascites adjacent to the liver. Stable subcentimeter hepatic low-densities. Keep nothing by mouth We'll place NG tube to low intermittent suction if needed. Patient improved without NGT placement. Consult general surgery for further evaluation. Discussed with Dr Chet kim surg cleared for DC A medications per pain scale IV fluids Hypertension continue lisinopril, hydrochlorothiazide, amlodipine. Monitor vital signs Hyperlipidemia continue atorvastatin DVT prophylaxis SCD/teds Discussed with the patient, nurse, Dr Chet kim surg Discharge Planning Discharge home in stable condition To follow up as OP with PCP and consultants Diet healthy heart diet and diabetic diet Activity ad enedelia as tolerated Meds per med reconciliations Azra Garner MD Sep 03, 2017 10:05
[2017-09-03] MEDS ORDERED: GLUCKIT15 (10:08)
[2017-09-03] MEDS ORDERED: GLUCTES12 (10:08)
[2017-09-03] MEDS ORDERED: METF1000 PO (10:08)
--- NOTE | 2017-09-03 10:08 | HHI.DCPOC ---
Discharge Care Plan Goals to Promote Your Health * To prevent worsening of your condition and complications * To maintain your health at the optimal level Directions to Meet Your Goals Take your medications as prescribed Follow your dietary instruction Follow activity as directed Keep your appointments as scheduled Take your immunizations and boosters as scheduled If your symptoms worsen call your PCP, if no PCP go to Urgent Care Center or Emergency Room Smoking is Dangerous to Your Health. Avoid second hand smoke Call the 24-hour hour crisis hotline for domestic abuse at Azra Garner MD Sep 03, 2017 10:08
[2017-09-03 10:22] LABS: ALKALINE PHOSPHATASE 63 U/L (45-117); ALT (GPT) 33 U/L (12-78); ANION GAP 9 MEQ/L (5-15); AST (GOT) 18 U/L (15-37); BICARBONATE 30.9 MEQ/L (21.0-32.0); BLOOD UREA NITROGEN 11 MG/DL (7-18); CHLORIDE 101 MEQ/L (98-107); GLOMERULAR FILTRATION RATE 83 ML/MIN (>89); SODIUM (NA) 141 MEQ/L (136-145); TOTAL BILIRUBIN ADULT 1.7 MG/DL (0.2-1.0)
[2017-09-03 10:29] LABS: POTASSIUM 2.9 MEQ/L (3.5-5.1)
[2017-09-03] MEDS ORDERED: POTASSIUM BICARBONATE 25 MEQ EFFERVESCENT TAB PO ONE (10:45)
[2017-09-03 11:51] VITALS: BP 128/87; PULSE 67; RESP 18; TEMP 98.2; O2SAT 95
== END 2017-09-03 11:27 | disposition home or self-care (01) | DRG 389 ==
LOC: NEPC 02:37 → NEDA 05:22 → N06B 07:18
PROVIDERS: ADMIT Hospitalist; ATTEND Hospitalist
DX: K56.51 Intestinal adhesions [bands], with partial obstruction (principal); R18.8 Other ascites; I10 Essential (primary) hypertension; E78.5 Hyperlipidemia, unspecified; E78.00 Pure hypercholesterolemia, unspecified; K80.20 Calculus of gallbladder without cholecystitis without obstruction
CPT/HCPCS: 71010; 74177; 74250; 80053; 82550; 82948; 83036; 83605; 83690; 83735; 84484; 85025; 85610; 85730; 86140; 93005; J1815; J1885; J2405; J3480; J7030; Q9963; Q9967